=== PATIENT | female | born 1985 | race Caucasian/White ===

== ENCOUNTER 2018-12-14 16:57 | Emergency (ER) | payer SELFPAY ==
[~2018-12-14] VITALS: Ht 165.1 cm; Wt 75.7 kg
[2018-12-14] MEDS ORDERED: MELA5TAB3 PO (17:15)
[2018-12-14] MEDS ORDERED: SERT50TA12 PO (17:15)
[2018-12-14] MEDS ORDERED: TRAZ-220 PO (17:15)
[2018-12-14 17:51] LABS: BASOPHILS % (AUTO) 0.8 % (0.0-2.0); EOSINOPHILS % (AUTO) 1.6 % (1.0-6.0); HEMATOCRIT 36.2 % (36-46); HEMOGLOBIN 12.1 g/dL (12.0-16.0); LYMPHOCYTES # (AUTO) 1.6 K/uL (1.0-4.8); LYMPHOCYTES % (AUTO) 16.7 % (22.0-44.0); MEAN CORPUSCULAR HGB CONC 33.5 G/dL (31.0-37.0); MEAN CORPUSCULAR VOLUME 90 fL (80-100); MONOCYTES # (AUTO) 0.7 K/uL (0.1-1.0); MONOCYTES % (AUTO) 7.8 % (2.0-9.0); NEUTROPHILS % (AUTO) 73.1 % (40.0-70.0); PLATELET COUNT (AUTO) 285 K/uL (150-450); RED BLOOD CELL COUNT(AUTO) 4.04 MIL/uL (4.00-5.20); RED CELL DISTRIBUTION WIDTH 13.5 % (11.5-14.5)
[2018-12-14 18:09] LABS: CALCIUM, TOTAL 9.6 mg/dL (8.8-10.5); CREATININE 0.65 mg/dL (0.60-1.30); GLOMERULAR FILTR. RATE CALC > 60 mL/min (>60); GLUCOSE,RANDOM 110 mg/dL (70-110); UREA NITROGEN, BLOOD 8 mg/dL (7-18)
[2018-12-14 18:29] LABS: B-TYPE NATRIURETIC PEPTIDE 13 pg/mL (0-100)
[2018-12-14 18:33] LABS: ALANINE AMINOTRANSFERASE 144 U/L (12-78); ALBUMIN 3.4 g/dL (3.4-5.0); ALKALINE PHOSPHATASE 171 U/L (46-116); ASPARTATE AMINOTRANSFERASE 131 U/L (15-37); BILIRUBIN,TOTAL 0.5 mg/dL (0.1-1.0); CREATINE KINASE, TOTAL ONLY 97 U/L (26-192); HCG,QUANTITATIVE < 1 mIU/mL (0-6); LIPASE 80 U/L (73-393)
[2018-12-14 18:41] LABS: ANION GAP 9 mmol/L (8-16); CARBON DIOXIDE 25 mmol/L (22-29); CHLORIDE 100 mmol/L (98-107); POTASSIUM 4.1 mmol/L (3.5-5.1); SODIUM SERUM 134 mmol/L (136-145)
[2018-12-14] MEDS ORDERED: FAMOTIDINE 10 MG/ML 2 ML VIAL IVP ONE (19:30)
[2018-12-14] MEDS ORDERED: PB/HYOSCY/ATR/SCOP/LIDO/MAALOX 55 ML BOTTLE PO ONE (20:15)
[2018-12-14] MEDS ORDERED: ONDANSETRON HCL 4 MG/2 ML VIAL IVP ONE (21:15)
[2018-12-14] MEDS ORDERED: FentaNYL CITRATE-PF 100 MCG/2 ML VIAL IVP ONE (21:15)
[2018-12-14 23:05] VITALS: BP 108/65
== END 2018-12-14 23:08 | disposition home or self-care (01) ==
LOC: EMS 16:58
DX: K52.9 Noninfective gastroenteritis and colitis, unspecified (principal); F17.210 Nicotine dependence, cigarettes, uncomplicated; Z90.49 Acquired absence of other specified parts of digestive tract
CPT/HCPCS: 74022; 74176; 80053; 82550; 83690; 83880; 84484; 84702; 85025; 93005; 96374; 96375; 99285; J2405; J3010; J3490